=== PATIENT | male | born 1975 | race Caucasian/White ===

== ENCOUNTER → 2024-07-07 09:59 | Outpatient (CLI) | payer OTHER, MEDICARE, SELFPAY | LOC: WC 10:27 | PROVIDERS: PCP Physician Assistant; Visit Provider Surgery | DX: L89.153 Pressure ulcer of sacral region, stage 3 (principal); L98.8 Other specified disorders of the skin and subcutaneous tissue; L92.9 Granulomatous disorder of the skin and subcutaneous tissue, unspecified; E23.0 Hypopituitarism | CPT/HCPCS: 17250; 99203; 99212 ==

== ENCOUNTER → 2024-07-15 11:11 | Outpatient (CLI) | payer OTHER, MEDICARE, SELFPAY | LOC: WC 11:12 | PROVIDERS: PCP Physician Assistant; Referring Provider Student in an Organized Health Care Education/Training Program; Visit Provider Surgery | DX: L89.153 Pressure ulcer of sacral region, stage 3 (principal); E23.0 Hypopituitarism | CPT/HCPCS: 99213 ==

== ENCOUNTER → 2024-11-17 11:13 | Outpatient (CLI) | payer MEDICARE, OTHER, SELFPAY ==
--- NOTE | 2024-11-17 11:15 | DI.MRI.S_ITS ---
PROCEDURE: MR HIP RT WO CON INDICATIONS: RIGHT HIP PAIN TECHNIQUE: Noncontrast coronal T1 spin echo and STIR through the bony pelvis. Coronal and axial T2 fast spin echo with fat saturation, sagittal T1 spin echo, and oblique axial T2 fast spin echo with fat saturation through the hip. COMPARISON: [facility], CR, XR PELVIS WITH LATERAL HIP RIGHT, 10/05/2024, 7:53. FINDINGS: Image quality: Excellent. Bones and joints: Marrow signal of the visualized lower lumbar spine the sacrum, and bilateral sacroiliac joints are unremarkable. 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 Mild degenerative changes of the right hip, with mild subchondral marrow edema in the superior acetabulum. 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 Tendons and ligaments: The right iliopsoas, a doctor, and hamstring tendons are unremarkable. The right gluteal minimus and right gluteal medius tendon are unremarkable. Labrum and cartilage: Anterior superior labral tear. No paralabral cyst. No osseous prominence of the femoral head and neck junction to suggest CAM type femoral acetabular impingement. Soft tissues: Moderate sized fat necrosis with edema in the left medial buttock, incompletely evaluated. Wall thickening of the bladder, nonspecific IMPRESSION: 1. 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 2. 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 3. Labral tear. No paralabral cyst. 4. Moderate sized fat necrosis in the left medial buttock, incompletely evaluated. Dictated by: Bonita Kilpatrick M.D. on 11/17/2024 at 14:47 Approved by: Bonita Kilpatrick M.D. on 11/17/2024 at 14:55
== END ==
LOC: MRI 11:14
PROVIDERS: PCP Physician Assistant; Referring Provider Orthopaedic Surgery; Visit Provider Orthopaedic Surgery
DX: S73.191A Other sprain of right hip, initial encounter (principal); M87.9 Osteonecrosis, unspecified; M25.551 Pain in right hip; M79.89 Other specified soft tissue disorders
CPT/HCPCS: 73721